=== PATIENT | male | born 1975 | race African-American/Black ===

== ENCOUNTER 2020-02-04 08:03 | Emergency (ER) | payer OTHER, SELFPAY ==
--- NOTE | 2020-02-04 08:18 | ED.GENADULT ---
HPI - General Adult General Chief complaint: Allergic Reaction Stated complaint: Swollen lips Time Seen by Provider: 02/04/20 08:18 Source: patient and RN notes reviewed Mode of arrival: ambulatory Limitations: no limitations History of Present Illness HPI narrative: 44-year-old -[place] male presents with complaints of swelling to upper lip for the past 15 hours. Benadryl 50mg, last on 02/03/20 without relief. Upper lip swelling which has increased over the last 8 hours and since taking the Benadryl. Estelle says he was stung on the foot by a wasp on 02/03/20 and was moving trees 1 hour prior to swelling of upper lip. Denies new changes in personal hygiene products or laundry detergent. Currently taking scott inhibitor (Lisinopril) since the age of 35 for Hypertension. No known hereditary angioedema. Says this is his first time hearing of such. No new foods or medications. No other swelling, burning, bleeding, or drainage. Denies fever, chills, headaches, weakness, fatigue, myalgia, other facial swelling, throat swelling, or tongue swelling. Denies chest pain or dyspnea. Tolerating po intake well. The patient reports he have not been diagnosed with COVID-19. The patient reports he is not waiting for the results of a COVID-19 lab test. Estelle says he was tested 2 weeks ago with a NEGATIVE result. The patient reports he do not have fever, chills, weakness, or fatigue. The patient reports he do not have a new or worsening cough or shortness of breath. Denies chest pain. The patient reports he do not have any rhinorrhea, congestion, sore throat, nausea, vomiting, abdominal pain, and diarrhea. Denies recent traveling. Denies concerns for COVID-19 or exposures been home with limited outdoor exposure except for essential household needs, work, and return home. At this time, patient is not suspected of having COVID-19. Some parts of this dictation were generated by voice recognition software and may contain typographical and/or grammatical inaccuracies. Related Data Home Medications Medication Instructions Recorded Confirmed carvedilol 07/06/19 rosuvastatin mg 07/06/19 Allergies Allergy/AdvReac Type Severity Reaction Status Date / Time No Known Drug Allergies Allergy Unknown Unknown Verified 07/06/19 10:50 Review of Systems Review of Systems: Narrative: CONSTITUTIONAL: Denies fever, chills, sweats. EYES: Denies visual changes, redness, discharge. ENT: Denies rhinorrhea, congestion, sore throat, otalgia. Complains of swelling to the upper lip. CARDIOVASCULAR: Denies chest pain, palpitations, edema. RESPIRATORY: Denies dyspnea, wheezing, cough. GASTROINTESTINAL: Denies abdominal pain, nausea, vomiting, diarrhea. GENITOURINARY: Denies dysuria, hematuria, abnormal discharge. SKIN: Denies drainage. MUSCULOSKELETAL: Denies acute back pain, joint pain, or myalgia. NEUROLOGIC: Denies numbness or focal weakness. PSYCHIATRIC: Denies anxiety or depression. All systems reviewed & are unremarkable except as noted in HPI and below. [facility] Past Medical History Medical History Cardiomyopathy Heart attack History of angina HTN (hypertension) Hyperlipidemia IBS (irritable bowel syndrome) Sleep apnea Surgical History Surgical History H/O local excision of skin lesion History of back surgery History of cardiac catheterization Family History Family History (Updated 02/04/20 @ 08:35 by GUILHERME Zelaya) Father Heart disease Mother Alive and well Social History Social History Smoking status: Current every day smoker Tobacco type: cigars Alcohol intake: current Substance use: never Gender identity (if verbalized by the patient): Male Comments At time of signature, agree with nurse past medical, surgical, social, and family history. There
[2020-02-04 08:19] VITALS: BP 145/90; PULSE 76; RESP 18; TEMP 36.7; O2SAT 100
[2020-02-04] MEDS: diphenhydrAMINE HCL ELIXIR 12.5 MG/5 ML UDC 50 MG PO (08:37)
[2020-02-04] MEDS: FAMOTIDINE 20 MG TABLET PO (08:38)
== END 2020-02-04 09:03 | disposition home or self-care (01) ==
PROVIDERS: Emergency Provider Nurse Practitioner Family; PCP Internal Medicine
DX: T78.3XXA Angioneurotic edema, initial encounter (principal); I25.2 Old myocardial infarction; I10 Essential (primary) hypertension; F17.290 Nicotine dependence, other tobacco product, uncomplicated
CPT/HCPCS: 96372; 99213; A9270; G0463; J1100

== ENCOUNTER 2021-01-21 12:10 | Outpatient (CLI) | payer OTHER, SELFPAY ==
--- NOTE | 2021-01-21 | ECG_ITS ---
Measurements Intervals [place] Rate: 59 P: 68 ID: [id number] QRS: 14 QRSD: 122 T: -8 QT: 426 QTc: 425 Interpretive Statements SINUS BRADYCARDIA RSR' IN V1 OR V2, CONSIDER RIGHT VENTRICULAR HYPERTROPHY OR RIGHT VCD DELAYED PRECORDIAL R/S TRANSITION CONSDIER INFERIOR INFARCT, AGE INDETERMINATE ABNORMAL ECG Electronically Signed On 01-21-2021 12:25:35 CDT by Richi Ellis D.O.
== END 2021-01-21 12:11 | disposition home or self-care (01) ==
PROVIDERS: PCP Internal Medicine; Visit Provider Nurse Practitioner Adult Health
DX: K21.9 Gastro-esophageal reflux disease without esophagitis (principal); I10 Essential (primary) hypertension; R00.1 Bradycardia, unspecified; R94.31 Abnormal electrocardiogram [ECG] [EKG]
CPT/HCPCS: 93005

== ENCOUNTER 2022-01-26 18:55 | Emergency (ER) | payer OTHER, SELFPAY ==
[2022-01-26 19:04] VITALS: BP 169/108; PULSE 66; RESP 16; TEMP 36.8; O2SAT 99
[2022-01-26 19:09] VITALS: BP 169/108; PULSE 66; RESP 16; TEMP 36.8; O2SAT 99
--- NOTE | 2022-01-26 19:17 | ED.URI ---
HPI - URI/Sore Throat General Chief Complaint: Upper Respiratory Infection Stated Complaint: sob Time Seen by Provider: 01/26/22 19:07 Source: patient Mode of arrival: ambulatory Limitations: no limitations History of Present Illness HPI Narrative: Patient presents today complaining of headache, dry cough, wheezing with shortness of breath that started around 9:00 this morning. Denies fever, chest pain, or any additional symptoms. He has been taking Tylenol and TheraFlu with mild relief. He has been vaccinated against COVID-19. Smokes cigars. Related Data Home Medications Medication Instructions Recorded Confirmed carvedilol 25 mg tablet 25 mg PO DAILY 07/06/19 01/26/22 Allergies Allergy/AdvReac Type Severity Reaction Status Date / Time lisinopril AdvReac Swelling Verified 01/26/22 19:02 Review of Systems Review of Systems: CONSTITUTIONAL: Denies body aches, fever, chills, or sweats. EYES: Denies visual changes, redness, or discharge. ENT: Denies rhinorrhea, congestion, sore throat, or otalgia. CARDIOVASCULAR: Denies chest pain, palpitations, or edema. RESPIRATORY: + Cough, shortness of breath, wheezing GASTROINTESTINAL: Denies abdominal pain, nausea, vomiting, or diarrhea. GENITOURINARY: Denies dysuria or hematuria. SKIN: Denies rash, itching, or wounds. MUSCULOSKELETAL: Denies back pain, joint pain, or myalgia. NEUROLOGIC: Denies numbness, tingling, or weakness.+ Headache PSYCH: Denies depression or anxiety. [facility] Past Medical History Medical History Cardiomyopathy Heart attack History of angina HTN (hypertension) Hyperlipidemia IBS (irritable bowel syndrome) Sleep apnea Surgical History Surgical History H/O local excision of skin lesion History of back surgery History of cardiac catheterization Family History Family History Father Heart disease Mother Alive and well Social History Social History Smoking status: Current every day smoker Tobacco type: cigars Alcohol intake: current Alcohol use details: Occasional Substance use: never Gender identity (if verbalized by the patient): Male Comments At time of signature, I have reviewed and agree with nursing past medical, surgical, social and family history unless otherwise noted. Please see nursing chart for further information. There is no relevant family history pertinent to the presenting complaint Exam Narrative: GENERAL: Well-appearing, well-nourished, and in no acute distress. HEAD: Normocephalic, atraumatic. EYES: EOMI. No redness or drainage. Conjunctivae normal. ENT: Mucous membranes pink and moist. Nares clear. No rhinorrhea. TMs normal bilaterally. Throat normal. Uvula midline. NECK: Normal AROM. Supple. No lymphadenopathy. CHEST: No respiratory distress. Clear to auscultation with decreased aeration. Tight cough with deep breaths. Able to speak in complete sentences throughout exam without difficulty. HEART: Regular rate and rhythm. No murmur appreciated. Normal peripheral pulses. EXTREMITIES: Normal range of motion. No edema. SKIN: Warm, dry, no rash. Capillary refill normal. Normal skin turgor. NEURO: No focal deficits. Alert and oriented x3. Gait steady. PSYCH: Normal affect. No signs of depression or anxiety. Course Course Emergency Course: 1944- Increased aeration after Duoneb. Patient states he is able to take a deeper breath. Breath sounds clear. He declines rx for cough medicine. Level of Care: Express Care Visit Vital Signs Vital signs: Vital Signs Temperature 98.3 F 01/26/22 19:04 Pulse Rate 66 01/26/22 19:04 Respiratory Rate 16 01/26/22 19:04 Blood Pressure 169/108 H 01/26/22 19:04 Pulse Oximetry 99 01/26/22 19:04 Oxygen Deliver
[2022-01-26 19:20] VITALS: BP 146/88
[2022-01-26] MEDS: ALBUTEROL SULFATE NEB 2.5 MG/3 ML INH INHALATION (19:23)
[2022-01-26] MEDS: IPRATROPIUM BR 0.02% INH SOLN 0.5 MG/2.5 ML VIAL INHALATION (19:23)
== END 2022-01-26 19:55 | disposition home or self-care (01) ==
PROVIDERS: Emergency Provider Nurse Practitioner
DX: J40 Bronchitis, not specified as acute or chronic (principal); F17.290 Nicotine dependence, other tobacco product, uncomplicated; I42.9 Cardiomyopathy, unspecified; I25.2 Old myocardial infarction; I20.9 Angina pectoris, unspecified; I10 Essential (primary) hypertension; E78.5 Hyperlipidemia, unspecified; G47.30 Sleep apnea, unspecified
CPT/HCPCS: 94640; 99213; G0463

== ENCOUNTER 2022-01-30 10:23 | Outpatient (CLI) | payer OTHER, SELFPAY ==
--- NOTE | ~2022-01-30 | XR_ITS ---
XR chest 2V DATE: 01/30/2022 10:49 INDICATION: Wheezing, shortness of breath TECHNIQUE: PA and lateral views COMPARISON: 07/06/2019 PA and lateral chest FINDINGS: Mild cardiomegaly. No hilar or mediastinal enlargement. No pulmonary infiltrate or consolid ation, pleural effusion or pulmonary vascular congestion or pneumothorax is detected. Degenerative spurring of the thoracic spine. IMPRESSION: Mild cardiomegaly Reviewed, dictated and finalized at location B. IMPRESSION: Mild cardiomegaly
== END 2022-01-30 10:24 | disposition home or self-care (01) ==
PROVIDERS: Visit Provider Nurse Practitioner Adult Health
DX: R06.2 Wheezing (principal); I51.7 Cardiomegaly
CPT/HCPCS: 71046

== ENCOUNTER 2022-03-24 23:21 | Inpatient (IN) | payer OTHER, SELFPAY ==
--- NOTE | ~2022-03-24 | CT_ITS ---
EXAMINATION: CTA chest DATE: 03/25/2022 11:51 CDT INDICATION: Chest and back pain TECHNIQUE: Computed tomographic angiography (CTA) of the chest was performed with 100 mL Omnipaque-35 0 intravenous contrast. The dose-length product was 1147.79 mGy-cm. Maximum intensity projection 3D-r econstructions of the aorta and other arteries were constructed by the technologist on a separate wor kstation. Automated exposure control and iterative reconstruction technique were employed. COMPARISON: Chest x-ray dated 01/30/2022. FINDINGS: Cardiomegaly. No significant pleural or pericardial effusion. There are changes of gastric bypass surgery. The aorta is within normal limits without evidence for aneurysm or dissection. The ce liac axis, SMA and renal arteries are widely patent. There is gynecomastia. No thoracic lymphadenopat hy. Study not optimized for evaluation of pulmonary embolism. No focal airspace consolidation. No pne umothorax. No endobronchial lesions. There is mild thoracic spondylosis. IMPRESSION: 1. No acute cardiopulmonary disease. No evidence for aortic aneurysm or dissection. Reviewed, dictated and finalized at location A. IMPRESSION: 1. No acute cardiopulmonary disease. No evidence for aortic aneurysm or dissect ion.
--- NOTE | 2022-03-24 23:16 | ADMGEN ---
This patient, Estelle Salazar, was admitted to IMU Room 209-01 at 2310. Patient/family oriented to hospital policies and general routines including ID bracelet, bed and alarms, visiting hours, pain management, procedures, bathroom and other care routines, personal items, smoking policy, room service/diet, and visiting hours. Information on how to activate the Rapid Response Team has been discussed. Patient/Family are encouraged to report perceived risks to care and to ask questions if they do not understand what they are told or what they should do.
[2022-03-24 23:19] VITALS: BMI 34.4
[2022-03-24 23:28] VITALS: BP 170/107; PULSE 71; RESP 18; TEMP 36.3; O2SAT 100
[2022-03-24 23:29] VITALS: BMI 34.2
[2022-03-25] VITALS (17 sets, daily range): BP systolic 104–177; BP diastolic 56–118; PULSE 53–88; RESP 16–18; TEMP 36.1–36.4; O2SAT 98–100
[2022-03-25] MEDS: ACETAMINOPHEN 325 MG TABLET 650 MG PO ×3 (02:34→14:54)
[2022-03-25 05:06] LABS: Hematocrit 39.9 % (42.0-52.0); Hemoglobin 13.7 g/dL (14.0-18.0); Mean Corpuscular HGB Conc 34.3 g/dl (32-36); Mean Corpuscular Hemoglobin 27.3 pg (26-34); Mean Corpuscular Volume 79.5 fl (80-100); Mean Platelet Volume 11.4 fl (7.4-10.4); Platelet Count Result 278 k/mm3 (150-375); Red Blood Count 5.02 M/mm3 (4.6-6.20); Red Cell Distribution Width 13.7 % (11.5-14.5); White Blood Count 6.7 K/mm3 (4.5-10.0)
[2022-03-25 05:31] LABS: Alanine Aminotransferase 30 U/L (6-50); Albumin Level 3.5 g/dL (3.5-5.1); Alkaline Phosphatase 81 U/L (38-126); Anion Gap 8 mmol/L (8-16); Aspartate Amino Transferase 47 U/L (17-59); Bilirubin,Total 0.6 mg/dL (0.2-1.3); Blood Urea Nitrogen 12 mg/dL (9-20); Calcium 8.3 mg/dL (8.4-10.2); Carbon Dioxide 27 mmol/L (22-30); Chloride 105 mmol/L (98-107); Cholesterol 158 mg/dL (0-200); Estimated CRCL calculation 143 ml/min; Estimated Glomerular Filt Rate > 60; Glucose 95 mg/dL (65-110); HDL Direct 46 mg/dL; Magnesium 1.8 mg/dL (1.6-2.3); Potassium 3.6 mmol/L (3.4-5.0); Sodium 140 mmol/L (137-145); Triglycerides 130 mg/dL (<150)
[2022-03-25 05:41] LABS: LDL Cholesterol Direct 88 mg/dL
--- NOTE | 2022-03-25 08:00 | ECG_ITS ---
Measurements Intervals [place] Rate: 57 P: 56 NC: 165 QRS: -17 QRSD: 150 T: 0 QT: 485 QTc: 472 Interpretive Statements SINUS BRADYCARDIA RIGHT BUNDLE BRANCH BLOCK CONSIDER INFERIOR INFARCT, AGE INDETERMINATE BORDERLINE T WAVE ABNORMALITY- LATERAL LEADS ABNORMAL ECG COMPARED TO ECG 03/25/2022 00:03:39 HEART RATE HAS DECREASED Electronically Signed On 03-25-2022 8:56:30 CDT by Richi Ellis D.O.
--- NOTE | 2022-03-25 08:00 | ECG_ITS ---
Measurements Intervals [place] Rate: 66 P: 57 WV: 160 QRS: -16 QRSD: 157 T: 12 QT: 474 QTc: 498 Interpretive Statements SINUS RHYTHM RIGHT BUNDLE BRANCH BLOCK CONSIDER INFERIOR INFARCT, AGE INDETERMINATE BASELINE ARTIFACT- I, III ABNORMAL ECG COMPARED TO ECG 01/21/2021 12:24:11 HEART RATE HAS INCREASED RIGHT BUNDLE-BRANCH BLOCK NOW PRESENT Electronically Signed On 03-25-2022 8:49:08 CDT by Richi Ellis D.O.
[2022-03-25] MEDS: LOSARTAN POTASSIUM 100 MG TABLET PO (08:30)
[2022-03-25] MEDS: ASPIRIN 81 MG ENTERIC TABLET PO (08:30)
[2022-03-25] MEDS: carvediloL 25 MG TABLET PO ×3 (08:31→21:16)
--- NOTE | 2022-03-25 09:03 | PM.IMHP ---
H&P: HPI History of Present Illness Date/Time: 03/25/22 09:03 Chief Complaint: Chest Pain, Elevated trop, NSTEMI Narrative: Estelle Salazar is a 46-year-old male followed by Dr. Montaño for a cardiomyopathy, thought to be hypertensive cardiomyopathy. His most recent echo in June 2021 showed an ejection fraction of 45-52%, moderate LV enlargement with mild global hypokinesis. He was seen by our nurse practitioner on 01/30/2022 complaining of wheezing and shortness of breath. A follow-up chest x-ray was unremarkable. He has been using the inhaler and PFTs are pending. The patient has been doing well with no further shortness of breath. However suddenly yesterday while at work, around 1:00 p.m., he developed an intense sharp continuous substernal tightness which radiated to both arms and also to his upper back. He had no nausea, vomiting, sweats or shortness of breath. EMS gave him some nitro and he was taken to [facility] in [facility]. There his ER EKG showed sinus rhythm rate 63, right bundle-branch block left anterior fascicular block and no ischemic changes although on my personal review I do see some slight early repolarization anterio- laterally. The chest discomfort had resolved at that point. After discussion with ER MD Dr. Munoz, I agreed to accept the patient and he was given a dose of full dose Lovenox. The patient reports he had some very minimal chest discomfort lasting 5-10 minutes around 1:00 a.m. this morning but he has been fine since then. The patient had a cardiac catheterization 2011 to evaluate his new cardiomyopathy which showed no coronary disease. He does not smoke. His father has had some type of clogged arteries. No drug use. No problems with MATHEW your other episodes of chest pain. Review of Systems Constitutional: Constitutional: Denies fever(s) Cardiovascular: Cardiovascular: Reports chest pain, Reports pedal edema (Infrequently), Denies lightheadedness and Denies dyspnea Respiratory: Respiratory: Denies chest congestion and Denies dyspnea Comments: Patient's wheezing and shortness of breath and [place] has resolved. No history of asthma but he was given inhaler which she uses infrequently. Gastrointestinal: Gastrointestinal: Denies abdominal pain, Denies hematochezia and Reports heartburn Musculoskeletal: Musculoskeletal: Reports no additional musculoskeletal complaints Integumentary/Breasts: Skin/Breast: Reports system reviewed and no additional complaints, except as docu Neurologic: Reports system reviewed and no additional complaints, except as documented, Denies behavioral changes and Denies confusion Psychiatric: Psychiatric: Denies behavioral changes and Denies confusion Hematologic/Lymphatic: Comments: Patient had a [id number]-rso-[id number] DVT 1 year ago treated with Eliquis, after his gastric bypass surgery. [facility] Past Medical History Medical History (Updated 03/25/22 @ 10:12 by Maegan Chaparro MD) Cardiomyopathy H/O deep venous thrombosis 2020? 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 H/O local excision of skin lesion History of back surgery History of cardiac catheterization Family History Family History (Updated 03/25/22 @ 10:08 by Maegan Chaparro MD) Father Heart disease Heart problems when in his 20's, clogged arteries in middle age, possible valve dz Hypertension Diabetes mellitus Mother Alive and well Other Blood clot in vein Social History Social History Smoking status: Former smoker Alcohol intake: current Drinks per week: 5 Alcohol use details: Occasional Substance use: never Gender identit
[2022-03-25] MEDS: PERFLUTREN LIPID MICROSPHERES 1.5 ML VIAL DILUTED TO 10 ML TOTAL VOLUME IV PUSH (09:55)
--- NOTE | 2022-03-25 09:56 | IVDEFINITY ---
Prior to administration of IV Definity the patient was educated on the risks and benefits of the imaging enhancing agent including potential adverse side effects. The patient verbalized understanding. Allergies were verified. No exclusion criteria were identified and at least one of the following inclusion criteria were met: 1) physician request, 2) patient technically difficult to image (per the [place] [employer]chocardi[employer] guidelines of two or more segments not discernable within the apical view), or 3) questionable left ventricular function. ?
[2022-03-25] MEDS: amLODIPine BESYLATE 5 MG TABLET PO (10:53)
[2022-03-25 14:02] LABS: Basophils Percent Auto 0.3 % (0.2-1.2); Eosinophils Absolute Auto 0.3 K/mm3 (0-0.3); Eosinophils Percent Auto 5.4 % (0-4.4); Hematocrit 41.2 % (42.0-52.0); Hemoglobin 14.1 g/dL (14.0-18.0); Immature Granulocyte Absolute 0.01 K/mm3 (0.00-0.031); Immature Granulocyte Percent A 0.2 % (0-0.5); Lymphocytes Absolute Auto 1.56 K/mm3 (0.9-3.2); Lymphocytes Percent Auto 26.5 % (18.3-44.2); Mean Corpuscular HGB Conc 34.2 g/dl (32-36); Mean Corpuscular Hemoglobin 27.2 pg (26-34); Mean Corpuscular Volume 79.4 fl (80-100); Monocytes Absolute Auto 0.5 K/mm3 (0.1-0.6); Neutrophils Absolute Auto 3.5 K/mm3 (1.3-6.7); Neutrophils Percent Auto 59.6 % (45.5-73.1); Platelet Count Result 291 k/mm3 (150-375); Red Blood Count 5.19 M/mm3 (4.6-6.20); White Blood Count 5.9 K/mm3 (4.5-10.0)
[2022-03-25 14:16] LABS: INR 1.1; Prothrombin Time 13.5 Seconds (11.1-14.7)
[2022-03-25] MEDS: HEPARIN SOD/D5W 100 UNITS/ML 25,000 UNITS/250 ML BAG 10 UNITS IV CONT (14:54)
[2022-03-25] MEDS: hydrALAZINE HCL 25 MG TABLET PO (14:57)
[2022-03-25 21:52] LABS: Partial Thromboplastin Time 31.3 SECONDS (22.3-36.8)
--- NOTE | 2022-03-25 23:30 | ECHO_ITS ---
Patient Info Name: Estelle Salazar Age: 46 years : 1975 Gender: Male Ht: 74 in Wt: 274 lbs BSA: 2.59 m2 HR: 58 bpm BP: 127 / 74 mmHg Heart Rhythm: Sinus Rhythm Exam Date: 03/25/2022 9:40 AM Exam Location: [facility] Patient Status: Inpatient Admit Date: 03/24/2022 Staff Ordering Physician: Maegan Chaparro MD Intake Coordinator: Karla Oropeza RDCS Attending Provider: Maegan Chaparro MD Referring Physician: Shankar AKERS; Exam Type: CA echo dop color flow w con Study Info Indications R07.9 - Chest pain, unspecified Complete two-dimensional, color flow and Doppler transthoracic echocardiogram is performed with contrast to opacify the left ventricle and to improve the deliniation of the left ventricle endocardial borders. Summary 1. Severe left ventricular enlargement with mild eccentric hypertrophy. Severe global hypokinesis, worse in the inferolateral segments. Ejection fraction is 25-30%. Grade 2 diastolic dysfunction is present. 2. Mild right ventricular enlargement with normal contractility. 3. Left atrial chamber dimension is moderately enlarged. 4. There is mild mitral valve regurgitation. 5. Unable to estimate the right ventricular systolic pressure on this study. 6. Normal sinus rhythm. Left Ventricle Left ventricular chamber dimension is normal. Left ventricular systolic function is normal, estimated at 25-30%. There is mildly increased left ventricular wall thickness. Left ventricular septal wall motion is normal. The left ventricular diastolic function is grade II diastolic dysfunction. Right Ventricle Right ventricular chamber dimension is mildly enlarged. Right ventricular systolic function is normal. Left Atria Left atrial chamber dimension is moderately enlarged. Right Atria Right atrial chamber dimension is normal. Aortic Valve The aortic valve is trileaflet. There is no aortic valve sclerosis. There is no aortic valve stenosis. There is trace aortic valve regurgitation. Pulmonic Valve The pulmonic valve is normal. There is no pulmonic valve stenosis. There is trace pulmonic regurgitation. Mitral Valve The mitral valve has normal leaflets. There is no mitral valve stenosis. There is mild mitral valve regurgitation. Tricuspid Valve The tricuspid valve leaflets are normal. There is no significant tricuspid valve stenosis. There is no tricuspid valve regurgitation. No pulmonary hypertension, estimated pulmonary arterial systolic pressure is Empty. Pericardium/Pleural The pericardium appears normal. There is no pericardial effusion. Inferior Vena Cava Normal inferior vena cava with >50% collapse upon inspiration consistent with Empty right atrial pressure, Empty. Aorta The aortic root size at the sinus of Valsalva is normal. The prox ascending aorta size is normal. Left Ventricular Outflow Tract Name Value Normal LVOT 2D LVOT Diameter 2.42 cm LVOT Doppler LVOT Peak Gradient 6 mmHg LVOT Mean Gradient 4 mmHg LVOT VTI 26.16 cm LVOT
[2022-03-26] VITALS (14 sets, daily range): BP systolic 104–151; BP diastolic 66–94; PULSE 53–89; RESP 14–20; TEMP 36.2–36.6; O2SAT 93–99
[2022-03-26] MEDS: HEPARIN SODIUM 5,000 UNITS/ML VIAL 4000 UNITS IV PUSH ×2 (04:28→11:54)
[2022-03-26] MEDS: ATORVASTATIN 40 MG TABLET PO (08:25)
[2022-03-26] MEDS: ASPIRIN 81 MG ENTERIC TABLET PO (08:26)
[2022-03-26] MEDS: carvediloL 25 MG TABLET PO ×2 (08:26→20:58)
[2022-03-26] MEDS: LOSARTAN POTASSIUM 100 MG TABLET PO (08:26)
[2022-03-26] MEDS: SPIRONOLACTONE 25 MG TABLET PO (08:26)
[2022-03-26] MEDS: amLODIPine BESYLATE 5 MG TABLET PO (08:27)
[2022-03-26] MEDS: HEPARIN SOD/D5W 100 UNITS/ML 25,000 UNITS/250 ML BAG 14 UNITS IV CONT (10:31)
[2022-03-26 11:09] LABS: Basophils Percent Auto 0.3 % (0.2-1.2); Eosinophils Absolute Auto 0.4 K/mm3 (0-0.3); Eosinophils Percent Auto 5.5 % (0-4.4); Hematocrit 41.5 % (42.0-52.0); Hemoglobin 14.1 g/dL (14.0-18.0); Immature Granulocyte Absolute 0.03 K/mm3 (0.00-0.031); Immature Granulocyte Percent A 0.4 % (0-0.5); Lymphocytes Absolute Auto 1.99 K/mm3 (0.9-3.2); Lymphocytes Percent Auto 29.7 % (18.3-44.2); Mean Corpuscular Hemoglobin 27.2 pg (26-34); Mean Platelet Volume 10.8 fl (7.4-10.4); Monocytes Absolute Auto 0.6 K/mm3 (0.1-0.6); Monocytes Percent Auto 8.3 % (2.6-8.5); Neutrophils Absolute Auto 3.7 K/mm3 (1.3-6.7); Neutrophils Percent Auto 55.8 % (45.5-73.1); Platelet Count Result 267 k/mm3 (150-375); Red Blood Count 5.19 M/mm3 (4.6-6.20); Red Cell Distribution Width 14.1 % (11.5-14.5); White Blood Count 6.7 K/mm3 (4.5-10.0)
[2022-03-26 11:20] LABS: Partial Thromboplastin Time 42.6 SECONDS (22.3-36.8)
--- NOTE | 2022-03-26 12:25 | PM.PNCARD ---
Progress Note: A&P Assessment and Plan (1) NSTEMI (non-ST elevated myocardial infarction): Code(s): I21.4 - Non-ST elevation (NSTEMI) myocardial infarction Status: Acute Assessment and Plan: Patient prevents with history highly consistent with a non-STEMI. EKG shows some lateral changes. Troponin rise and fall consistent with a non-STEMI. Has been pain-free for greater than 24 hours Continue aspirin, heparin, atorvastatin, carvedilol, losartan p.r.n. nitroglycerin Control blood pressure Cardiac catheterization on Sunday. Reviewed the procedure with the patient and possible need for intervention or surgery If patient has prolonged chest discomfort not relieved with nitroglycerin we can do an emergency cardiac catheterization over the weekend (2) Cardiomyopathy: Code(s): I42.9 - Cardiomyopathy, unspecified Status: Acute Assessment and Plan: History of cardiomyopathy, EF 45-52% in June 2021, thought to be hypertensive. EF has declined, now 25-30%, worse infero- laterally. At risk for sudden cardiac , discussed possible Life Vest placement Further discussion tomorrow after cardiac catheterization. It is true that the patient's cardiomyopathy may be undesirable to his employer; further discussion at a later date. (3) HTN (hypertension): Code(s): I10 - Essential (primary) hypertension Status: Acute Assessment and Plan: Apparently reasonably well controlled most the time, running very high this admission. Improved after adding amlodipine P.r.n. hydralazine (4) Hyperlipidemia: Code(s): E78.5 - Hyperlipidemia, unspecified Status: Acute Assessment and Plan: LDL 88 Started atorvastatin (5) H/O deep venous thrombosis: Code(s): Z86.718 - Personal history of other venous thrombosis and embolism Status: Acute Assessment and Plan: History of cbmeg-ahy-[id number] DVT about a year ago, previously treated with Eliquis, resolved. History does not sound very suggestive of another DVT or PE. Subjective Date/time seen: Patient admitted with acute chest pain found to have a non-STEMI. Started on heparin drip. History of hypertension and cardiomyopathy, followed by Dr. Montaño. Echo this admission shows worsening LV function, EF 25-30%, severe global hypokinesis worse in inferolateral leads. 03/25/2022: CT of the chest showed no aortic dissection so patient was started on heparin. 03/26/22 12:25: Up in about a and his room, headache finally gone. No further chest discomfort, no breathing problems. Blood pressure is still high but improved. Concerned that his heart condition will prevent him from working. Tele: NSR, occasional PVCs Review of Systems Review of Systems: No chest pain, dizziness, shortness of breath, edema, palpitations. Exam Narrative: Up and about in his room in no distress Const: General: cooperative, healthy appearing and comfortable; No confusion Orientation/consciousness: oriented to person, patient oriented x3 and No confusion Resp: Effort & Inspection: normal respiratory effort Auscultation: clear to auscultation bilaterally Cardio: Rate: regular rate Rhythm: regular rhythm GI: Inspection: normal to inspection Other: No distension Skin: General skin exam: normal color and no rashes or lesions noted Neuro: General: oriented to person, patient oriented x3 and No confusion Extrem: Right lower extremity: no edema Left lower extremity: no edema Psych: Appearance: grossly normal Mental Status: mental status grossly normal Objective Data Vital Signs Vital Signs: Vital Signs - 24 hr 03/25/22 14:00 03/25/22 14:39 03/25/22 16:00 Temperature 97.5 F L Pulse Rate 69 77 Respiratory Rate 18 Blood Pressure 154/107 H 149/90 H Pulse Oximetry 98 Oxygen Delivery 03/25/22 16:00 03/25/22 18:00 03/25/22 20:00 Temperature 97.4 F L Pulse Rate 64 88 61 Respiratory Rate
[2022-03-26 17:40] LABS: Partial Thromboplastin Time 84.5 SECONDS (22.3-36.8)
[2022-03-27] VITALS (28 sets, daily range): BP systolic 108–176; BP diastolic 52–110; PULSE 52–74; RESP 14–20; TEMP 36.4–36.9; O2SAT 95–100
[2022-03-27] MEDS: HEPARIN SOD/D5W 100 UNITS/ML 25,000 UNITS/250 ML BAG 18 UNITS IV CONT (00:05)
[2022-03-27 01:48] LABS: Partial Thromboplastin Time 79.2 SECONDS (22.3-36.8)
[2022-03-27 09:54] LABS: Basophils Percent Auto 0.4 % (0.2-1.2); Eosinophils Absolute Auto 0.4 K/mm3 (0-0.3); Eosinophils Percent Auto 5.5 % (0-4.4); Hematocrit 40.6 % (42.0-52.0); Hemoglobin 13.7 g/dL (14.0-18.0); Immature Granulocyte Absolute 0.03 K/mm3 (0.00-0.031); Immature Granulocyte Percent A 0.4 % (0-0.5); Lymphocytes Absolute Auto 2.67 K/mm3 (0.9-3.2); Lymphocytes Percent Auto 39.5 % (18.3-44.2); Mean Corpuscular HGB Conc 33.7 g/dl (32-36); Mean Corpuscular Hemoglobin 27.5 pg (26-34); Mean Corpuscular Volume 81.4 fl (80-100); Mean Platelet Volume 11.8 fl (7.4-10.4); Monocytes Absolute Auto 0.6 K/mm3 (0.1-0.6); Monocytes Percent Auto 8.7 % (2.6-8.5); Neutrophils Absolute Auto 3.1 K/mm3 (1.3-6.7); Neutrophils Percent Auto 45.5 % (45.5-73.1); Platelet Count Result 277 k/mm3 (150-375); Red Blood Count 4.99 M/mm3 (4.6-6.20); Red Cell Distribution Width 14.3 % (11.5-14.5); White Blood Count 6.8 K/mm3 (4.5-10.0)
[2022-03-27 10:07] LABS: Alanine Aminotransferase 26 U/L (6-50); Albumin Level 3.4 g/dL (3.5-5.1); Alkaline Phosphatase 90 U/L (38-126); Anion Gap 7 mmol/L (8-16); Aspartate Amino Transferase 24 U/L (17-59); Bilirubin,Total 0.7 mg/dL (0.2-1.3); Blood Urea Nitrogen 12 mg/dL (9-20); Calcium 8.6 mg/dL (8.4-10.2); Carbon Dioxide 29 mmol/L (22-30); Chloride 102 mmol/L (98-107); Estimated CRCL calculation 127 ml/min; Estimated Glomerular Filt Rate > 60; Glucose 87 mg/dL (65-110); Potassium 4.2 mmol/L (3.4-5.0); Sodium 138 mmol/L (137-145)
--- NOTE | 2022-03-27 10:19 | WPDMODSED ---
Moderate Sedation Note-Pt Data Patient Data Diagnosis: Acute coronary syndrome Left ventricular systolic dysfunction Present Complaint: No complaints this morning Procedure to be performed/Plan: Left heart catheterization Allergies Allergy/AdvReac Type Severity Reaction Status Date / Time lisinopril AdvReac Swelling Verified 01/26/22 19:02 Home Medications Medication Instructions Recorded Confirmed Type carvedilol 25 mg tablet 25 mg PO BID 07/06/19 03/24/22 History losartan 100 mg tablet 100 mg PO DAILY #30 tabs 02/04/20 03/24/22 Rx albuterol sulfate 90 mcg/actuation 2 puff inhalation Q4-6H PRN 01/26/22 03/24/22 Rx aerosol inhaler (ProAir HFA) shortness of breath or wheezing #18 grams Current Medications: Active Medications Acetaminophen (Acetaminophen 325 Mg Tablet) 650 mg PO Q6H PRN PRN Reason: Mild Pain (1-3) or Fever Last Admin: 03/25/22 14:54 Dose: 650 mg Amlodipine Besylate (Amlodipine Besylate 5 Mg Tablet) [facility] [place] Last Admin: 03/26/22 08:27 Dose: 5 mg Aspirin (Aspirin 81 Mg Enteric Tablet) 81 mg PO QAM [facility] Last Admin: 03/26/22 08:26 Dose: 81 mg Atorvastatin Calcium (Atorvastatin 40 Mg Tablet) 40 mg PO DAILY [facility] Last Admin: 03/26/22 08:25 Dose: 40 mg Carvedilol (Carvedilol 25 Mg Tablet) 25 mg PO Q12HR [facility] Last Admin: 03/26/22 20:58 Dose: 25 mg Heparin Sodium (Porcine) (Heparin Sodium 5,000 Units/Ml Vial) 4,000 units IV PUSH PRN PRN PRN Reason: aPTT less than 55 seconds Last Admin: 03/26/22 11:54 Dose: 4,000 units Heparin Sodium (Porcine) (Heparin Sodium 5,000 Units/Ml Vial) 4,000 units IV PUSH PRN PRN PRN Reason: aPTT 55 - 70 seconds Hydralazine HCl (Hydralazine Hcl 25 Mg Tablet) 25 mg PO Q6H PRN PRN Reason: SBP>160 OR DBP>100 Heparin Sodium/Dextrose (Heparin Sodium/D5w 100 Units/Ml) 25,000 units in 250 mls @ 18 mls/hr IV CONT .[id number] [facility]; Protocol Last Titration: 03/27/22 04:51 Dose: 1,800 units/hr, 18 mls/hr Sodium Chloride (Normal Saline Iv) 500 mls @ 100 mls/hr IV CONT .Q5H STEPHANIE Losartan Potassium (Losartan Potassium 100 Mg Tablet) 100 mg PO DAILY [facility] Last Admin: 03/26/22 08:26 Dose: 100 mg Nitroglycerin (Nitroglycerin Sl 0.4 Mg Tablet) 0.4 mg SUBLINGUAL Q5MIN PRN PRN Reason: Chest Pain Oxycodone/Acetaminophen (Oxycodone/Acetaminophen (*Crx) 5-325 Mg Tablet) 1 tablet PO Q4H PRN PRN Reason: Pain Rated 4-6 Spironolactone (Spironolactone 25 Mg Tablet) 25 mg PO QAM [facility] Last Admin: 03/26/22 08:26 Dose: 25 mg Temazepam (Temazepam (*Crx) 15 Mg Capsule) 15 mg PO HS PRN PRN Reason: Insomnia Sedation/Anesthesia: No previous sedation/anesthesia problems (including family history). [facility] Past Medical History Medical History (Updated 03/25/22 @ 10:12 by Maegan Chaparro MD) Cardiomyopathy H/O deep venous thrombosis 2020? 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 H/O local excision of skin lesion History of back surgery History of cardiac catheterization Family History Family History (Updated 03/25/22 @ 10:09 by Maegan Chaparro MD) Father Heart disease Heart problems when in his 20's, clogged arteries in middle age, possible valve dz Hypertension Diabetes mellitus Mother Alive and well Other Blood clot in vein Social History Social History Smoking status: Former smoker Alcohol intake: current Drinks per week: 5 Alcohol use details: Occasional Substance use: never Gender identity (if verbalized by the patient): Male Spiritual care concerns: Yes Mod Sed Physical Exam Physical Exam Pre Procedural Exam: Normal: Appearance, Nose, Neck, Throat, Airway, Lungs, Heart Si
--- NOTE | 2022-03-27 10:56 | P.PCNCC_ITS ---
Cardiac Cath Procedure Note Date of procedure:: 03/27/22 Performing physician:: Harman Montaño MD Indication:: concern regarding acute coronary syndrome Brief clinical history:: this is a 46-year-old man with a history of hypertension and hypertensive cardiomyopathy who has been doing well with standard medical therapy. He presented to referring hospital's emergency room over the weekend with some ches t pain there has been a modest troponin rise. In this setting catheterization has been recommended. When his initial diagnosis was made approximately 10 years ago he did not have any coronary artery disease Procedure Procedure performed:: left ventriculogram coronary angiogram Angio-Seal to right femoral artery Sedation/Medication given:: fentanyl 50 mg Versed 2 mg case start time 10:34 a.m. case end time 10:52 a.m. sedation provided by Yen Rodriguez RN, trained observer Access site:: right femoral artery Estimated blood loss:: 20 cc Procedure note:: patient was brought to the cardiac catheterization lab postabsorptive state right femoral triangle was prepared and draped in the normal fashion. Anesthes ia was provided with 1% lidocaine infiltrated locally. Using the modified Seldinger technique femoral artery was punctured and a 5 [place] vascular sheath was placed. I then performed left heart catheterization 5 [place] angled pigtail catheter was used to measure left-sided hemodynamics and to inject LV g in the BARRY projection. Following this a standard 5 [place] JR4 catheter was used to engage and inject the right coronary artery then a 5 [place] FL4 catheter was used to engage inject the left coronary artery. The cineangiograms were then reviewed and the case was terminated. An angiogram was done of the femoral artery through the sheath after which a 6 [place] Angio-Seal device was deployed with a good hemostatic result. Patient tolerated the procedure well there were no apparent complications. 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 Findings:: Hemodynamics: Central aortic pressure is 146 over 95 left ventricle 144 over 12 end-diastolic pressure 36. No gradient was seen on pullback across the aortic valve. Left ventriculogram: The left ventricle is dilated. There is profound global systolic hypocontractility in all segments. The ejection fraction is visually estimated to be at 15%. The left main coronary artery is nicely patent the left anterior descending is a large caliber artery extending down to around the apex providing a significant amount of inferior wall as well. The LAD is smooth and angiographically normal in appearance the circumflex is a large caliber vessel giving rise to the marginal branches. The circumflex is smooth and free of disease. Right coronary artery is large in caliber and dominant posterior circulation. The RPDA is relatively small as the LAD extends around to the inferior wall as described above. Other than this the right coronary artery is smooth and angiographically normal. Conclusion:: 1. Right coronary dominant circulation with no evidence of coronary artery disease. 2. Left ventricular dilation with profound global systolic hypocontractility as described above elevated LVEDP Har[facility] Mont[facility]ño MD [facility]
--- NOTE | 2022-03-27 11:02 | PM.PNCARD ---
Progress Note: A&P Assessment and Plan (1) Cardiomyopathy: Code(s): I42.9 - Cardiomyopathy, unspecified Status: Acute Plan 46-year-old man with: Severe nonischemic cardiomyopathy. Will transition him at this time from losartan to Entresto. He is already on full dose carvedilol. Spironolactone was added over the weekend by my partner. He will remain in the hospital least until tomorrow because of today's angiogram. Will ensure that he tolerates Entresto without any hemodynamic problems. I will start with 49/50 mg since he is already on 100 mg of losartan. We will arrange for a life vest device prior to discharge. Harman Montaño MD [facility] Subjective Date/time seen: date of service:03/27/22 11:02 Interval history: Follow-up visit in this 46-year-old man with: Severe dilated nonischemic cardiomyopathy. Patient has history of cardiomyopathy which is been doing well with medical therapy for approximately a decade. He presented with chest pain on Sunday raising concern regarding coronary disease. Angiography today again demonstrates this gentleman does not have any coronary disease. Unfortunately he has markedly worsening cardiomyopathy with LV dilation severe global systolic dysfunction. LVEDP is elevated as well Exam Narrative: Up and about in his room in no distress Const: General: cooperative, healthy appearing, comfortable, well developed and alert; No acute distress or confusion Nutritional Appearance: well nourished Orientation/consciousness: oriented to person, patient oriented x3 and No confusion Other: Obese, pleasant and NAD HENMT: Head: normocephalic and atraumatic Ears: external ears normal General nose exam: Normal external nose present Mouth: Yes Normal oral and palatal mucosa present Eyes: General: appearance normal, both eyes and all related structures EOM: EOMs intact bilaterally Neck: Neck: no lymphadenopathy and No JVD Thyroid: thyroid normal Carotids: no bruits Chest: Chest palpation & inspection: no tenderness Resp: Effort & Inspection: normal respiratory effort and able to speak in complete sentences Auscultation: clear to auscultation bilaterally Cardio: Jugular venous distension: no JVD Rate: regular rate Rhythm: regular rhythm Bruits: no carotid bruits Peripheral pulses: Peripheral pulses 2+ throughout, posterior tibial pulses present and dorsalis pedis present Other: FEmoral pulses w/o bruits GI: Inspection: normal to inspection and non-distended Other: No distension Skin: General skin exam: normal color and no rashes or lesions noted Rashes: rash noted Wounds: wound noted Neuro: General: oriented to person, patient oriented x3 and No confusion Speech: normal speech Extrem: General: no pedal edema Right lower extremity: no edema Left lower extremity: no edema Psych: Appearance: grossly normal Mental Status: mental status grossly normal Speech and movement: Normal speech and movement present Objective Data Vital Signs Vital Signs: Vital Signs - 24 hr 03/26/22 12:00 03/26/22 12:00 03/26/22 15:59 Temperature 36.5 C 36.5 C Pulse Rate 66 61 68 Respiratory Rate 20 14 Blood Pressure 130/70 125/70 Pulse Oximetry 93 99 Oxygen Delivery 03/26/22 14:00 03/26/22 16:00 03/26/22 18:00 Temperature Pulse Rate 78 77 79 Respiratory Rate Blood Pressure Pulse Oximetry Oxygen Delivery 03/26/22 20:00 03/26/22 20:58 03/26/22 20:00 Temperature 36.4 C Pulse Rate 65 67 Respiratory Rate 18 Blood Pressure 141/80 H Pulse Oximetry 99 Oxygen Delivery Room Air 03/26/22 20:00 03/26/22 22:00 03/27/22 00:00 Temperature 36.8 C Pulse Rate 67 80 73 Respiratory Rate 18 Blood Pressure 114/58 L Pulse Oximetry 98 Oxygen Delivery 03/27/22 00:00 03/27/22 00:00 03/27/22 02:00 Temperature Pulse Rate 57 L 53 L Respiratory Rate Blood Pressure Pulse Oximetry Oxygen Delivery Room Air
--- NOTE | 2022-03-27 12:48 | PC.NURSE ---
[facility] flyer was given to patient in admission folder.
[2022-03-27] MEDS: SPIRONOLACTONE 25 MG TABLET PO (13:02)
[2022-03-27] MEDS: amLODIPine BESYLATE 5 MG TABLET PO (13:02)
[2022-03-27] MEDS: ASPIRIN 81 MG ENTERIC TABLET PO (13:02)
[2022-03-27] MEDS: carvediloL 25 MG TABLET PO ×2 (13:02→20:48)
[2022-03-27] MEDS: ATORVASTATIN 40 MG TABLET PO (13:02)
[2022-03-27] MEDS: SACUBITRIL/VALSARTAN 49-51 MG TABLET 1 TABLET PO (20:48)
[2022-03-27] MEDS: ACETAMINOPHEN 325 MG TABLET 650 MG PO (20:53)
[2022-03-28] VITALS (8 sets, daily range): BP systolic 135–148; BP diastolic 89–102; PULSE 53–78; RESP 16–20; TEMP 36.1–36.5; O2SAT 99–100
[2022-03-28] MEDS: SPIRONOLACTONE 25 MG TABLET PO (10:00)
[2022-03-28] MEDS: SACUBITRIL/VALSARTAN 49-51 MG TABLET 1 TABLET PO (10:00)
[2022-03-28] MEDS: ASPIRIN 81 MG ENTERIC TABLET PO (10:00)
[2022-03-28] MEDS: carvediloL 25 MG TABLET PO (10:00)
[2022-03-28] MEDS: ATORVASTATIN 40 MG TABLET PO (10:00)
[2022-03-28] MEDS: amLODIPine BESYLATE 5 MG TABLET PO (10:01)
--- NOTE | 2022-03-28 10:49 | PM.PNCARD ---
Progress Note: A&P Assessment and Plan (1) Cardiomyopathy: Code(s): I42.9 - Cardiomyopathy, unspecified Status: Acute Plan 46-year-old man with: Severe nonischemic cardiomyopathy. Will transition him at this time from losartan to Entresto. He is already on full dose carvedilol. Spironolactone was added over the weekend by my partner. He will remain in the hospital least until tomorrow because of today's angiogram. Will ensure that he tolerates Entresto without any hemodynamic problems. I will start with 49/50 mg since he is already on 100 mg of losartan. We will arrange for a life vest device prior to discharge. Harman Montaño MD [facility] Subjective Date/time seen: 03/28/22 10:49 Review of Systems Constitutional: Constitutional: Denies fever(s) Cardiovascular: Cardiovascular: Reports chest pain, Reports pedal edema (Infrequently), Denies lightheadedness and Denies dyspnea Respiratory: Respiratory: Denies chest congestion and Denies dyspnea Gastrointestinal: Gastrointestinal: Denies abdominal pain, Denies hematochezia and Reports heartburn Musculoskeletal: Musculoskeletal: Reports no additional musculoskeletal complaints Integumentary/Breasts: Skin/Breast: Reports system reviewed and no additional complaints, except as docu Neurologic: Reports system reviewed and no additional complaints, except as documented, Denies behavioral changes and Denies confusion Psychiatric: Psychiatric: Denies behavioral changes and Denies confusion Exam Narrative: Up and about in his room in no distress Const: General: cooperative, healthy appearing, comfortable, well developed and alert; No acute distress or confusion Nutritional Appearance: well nourished Orientation/consciousness: oriented to person, patient oriented x3 and No confusion Other: Obese, pleasant and NAD HENMT: Head: normocephalic and atraumatic Ears: external ears normal General nose exam: Normal external nose present Mouth: Yes Normal oral and palatal mucosa present Eyes: General: appearance normal, both eyes and all related structures EOM: EOMs intact bilaterally Neck: Neck: no lymphadenopathy and No JVD Thyroid: thyroid normal Carotids: no bruits Chest: Chest palpation & inspection: no tenderness Resp: Effort & Inspection: normal respiratory effort and able to speak in complete sentences Auscultation: clear to auscultation bilaterally Cardio: Jugular venous distension: no JVD Rate: regular rate Rhythm: regular rhythm Bruits: no carotid bruits Peripheral pulses: Peripheral pulses 2+ throughout, posterior tibial pulses present and dorsalis pedis present Other: FEmoral pulses w/o bruits GI: Inspection: normal to inspection and non-distended Other: No distension Skin: General skin exam: normal color and no rashes or lesions noted Rashes: rash noted Wounds: wound noted Neuro: General: oriented to person, patient oriented x3 and No confusion Speech: normal speech Extrem: General: no pedal edema Right lower extremity: no edema Left lower extremity: no edema Psych: Appearance: grossly normal Mental Status: mental status grossly normal Speech and movement: Normal speech and movement present Objective Data Vital Signs Vital Signs: Vital Signs - 24 hr 03/27/22 11:13 03/27/22 12:24 03/27/22 11:54 Temperature 36.4 C Pulse Rate 60 62 57 L Respiratory Rate 16 14 14 Blood Pressure 140/97 H 149/102 H 148/94 H Pulse Oximetry 100 99 95 Oxygen Delivery Room Air 03/27/22 11:39 03/27/22 11:24 03/27/22 12:54 Temperature 36.6 C Pulse Rate 58 L 59 L 59 L Respiratory Rate 14 14 18 Blood Pressure 150/97 H 141/96 H 139/91 H Pulse Oximetry 98 100 99 Oxygen Delivery 03/27/22 11:45 03/27/22 11:30 03/27/22 11:15 Temperature Pulse Rate 58 L 59 L 59 L Respiratory Rate 14 14 14 Blood Pressure 150/97 H 141/96 H 149/106 H Pulse Oximetry 98 100 100 Oxygen Delivery Room Air Room Air Room Air 03/27/22 12
--- NOTE | 2022-03-28 12:51 | PM.DS ---
DS: Admitting Diagnosis Discharge Date 03/28/2022 Admitting Diagnosis Chest pain DS: Discharge Diagnosis Discharge Diagnosis (1) Cardiomyopathy: Code(s): I42.9 - Cardiomyopathy, unspecified Status: Acute Assessment and Plan: Severe nonischemic cardiomyopathy. No signs of decompensated heart failure at this time. Medical therapy with spironolactone, coreg, Jardiance, and losartan. Would prefer for him to be on Entresto, however unfortunately he has experienced angioedema with lisinopril in the past so Entresto is not a safe option for him in my opinion. LifeVest has been ordered and hopefully will be placed today. No evidence of CAD on angiogram yesterday, will d/c ASA and atorvastatin (lipids normal) OK for discharge home today with close outpatient follow up DS: Summary Hospital Course Reason for hospitalization: Chest pain Hospital Course: Presented to the ED with complaint of chest pain and had a modest elevation in his troponin. He was taken to the cardiac labels molder where he was found to have angiographically normal coronary arteries. However, his LVSF was severely reduced with an EF of 15%. He did not have any periprocedural complications and remained stable with no evidence of CHF. His medical regimen was optimized and he was fitted for a LifeVest. Stable and appropriate for discharge home today. Time Spent with Patient Time attestation: Total time spent providing and/or coordinating discharge services: Exam Narrative: Up and about in his room in no distress Const: General: cooperative, healthy appearing, comfortable, well developed and alert; No acute distress or confusion Nutritional Appearance: well nourished Orientation/consciousness: oriented to person, patient oriented x3 and No confusion Other: Obese, pleasant and NAD HENMT: Head: normocephalic and atraumatic Ears: external ears normal General nose exam: Normal external nose present Mouth: Yes Normal oral and palatal mucosa present Eyes: General: appearance normal, both eyes and all related structures EOM: EOMs intact bilaterally Neck: Neck: no lymphadenopathy and No JVD Thyroid: thyroid normal Carotids: no bruits Chest: Chest palpation & inspection: no tenderness Resp: Effort & Inspection: normal respiratory effort and able to speak in complete sentences Auscultation: clear to auscultation bilaterally Cardio: Jugular venous distension: no JVD Rate: regular rate Rhythm: regular rhythm Bruits: no carotid bruits Peripheral pulses: Peripheral pulses 2+ throughout, posterior tibial pulses present and dorsalis pedis present GI: Inspection: normal to inspection and non-distended Other: No distension Skin: General skin exam: normal color and no rashes or lesions noted Rashes: rash noted Wounds: wound noted Other: R groin arterial access site free from bleeding, hematoma, or bruit. Neuro: General: oriented to person, patient oriented x3 and No confusion Speech: normal speech Extrem: General: no pedal edema Right lower extremity: no edema Left lower extremity: no edema Psych: Appearance: grossly normal Mental Status: mental status grossly normal Speech and movement: Normal speech and movement present Discharge Plan Discharge Consulting providers: Devante Goodman ; Harman Montaño ; Richi Ellis Discharging Clinician: Rachel Horvath Patient Disposition: Home, Self-Care Activity: other - see discharge instructions Diet: heart healthy Discharge Instructions: [facility] [address] [place] [address]
== END 2022-03-28 16:34 | disposition home or self-care (01) | DRG 287 ==
PROVIDERS: Specialist; Admitting Provider Internal Medicine Cardiovascular Disease; Visit Provider Nurse Practitioner
PROC: 4A023N7 Measurement of Cardiac Sampling and Pressure, Left Heart, Percutaneous Approach (ICD-10-PCS; CPT 93452; principal; 2022-03-27 11:30)
PROC: 4A023N7 Measurement of Cardiac Sampling and Pressure, Left Heart, Percutaneous Approach (ICD-10-PCS; 2022-03-27 11:30)
DX: I42.8 Other cardiomyopathies (principal); I11.9 Hypertensive heart disease without heart failure; I43 Cardiomyopathy in diseases classified elsewhere; E78.5 Hyperlipidemia, unspecified; K58.9 Irritable bowel syndrome, unspecified; G47.30 Sleep apnea, unspecified; E66.9 Obesity, unspecified; Z68.31 Body mass index [BMI] 31.0-31.9, adult; Z86.718 Personal history of other venous thrombosis and embolism; I25.2 Old myocardial infarction; Z98.84 Bariatric surgery status; Z87.891 Personal history of nicotine dependence
CPT/HCPCS: 36415; 71275; 80053; 80061; 83735; 84484; 85025; 85027; 85610; 85730; 93005; 93458; 96374; A9270; C1760; C1769; C1887; C1894; C8929; G0269; G0378; G0379; J1644; J2250; J3010; J7040; Q9957; Q9967

== ENCOUNTER 2022-04-20 07:15 | Outpatient (RCR) | payer OTHER, SELFPAY ==
[2022-04-18 09:07] VITALS: PULSE 61
== END 2022-04-27 16:26 | disposition home or self-care (01) ==
LOC: ANHCPREHAB 07:15
PROVIDERS: Visit Provider Nurse Practitioner
DX: I50.89 Other heart failure (principal)
CPT/HCPCS: 93798

== ENCOUNTER 2022-11-16 15:26 | Emergency (ER) | payer OTHER, SELFPAY ==
[2022-11-16 15:43] VITALS: BP 137/74; PULSE 61; RESP 16; TEMP 37.2; O2SAT 100
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
== END 2022-11-16 16:20 | disposition home or self-care (01) ==
PROVIDERS: Emergency Provider Nurse Practitioner Family
DX: R51.9 Headache, unspecified (principal); V47.6XXA Car passenger injured in collision with fixed or stationary object in traffic accident, initial encounter; Z87.891 Personal history of nicotine dependence; I10 Essential (primary) hypertension; E78.5 Hyperlipidemia, unspecified; I42.9 Cardiomyopathy, unspecified; I25.2 Old myocardial infarction; Z86.718 Personal history of other venous thrombosis and embolism; Z98.84 Bariatric surgery status
CPT/HCPCS: 99213; G0463

== ENCOUNTER 2023-02-10 09:43 | Emergency (ER) | payer OTHER, SELFPAY ==
[2023-02-10 09:57] VITALS: BP 112/50; PULSE 62; RESP 16; TEMP 36.6; O2SAT 99
--- NOTE | 2023-02-10 10:03 | ED.NAVMDI ---
HPI - Nausea/Vomiting/Diarrhea General Chief complaint: Nausea/Vomiting/Diarrhea Stated complaint: diarrhea Time Seen by Provider: 02/10/23 10:25 Source: patient and RN notes reviewed Mode of arrival: ambulatory Limitations: no limitations History of Present Illness HPI Narrative: 47-year-old male presents with concern for persistent diarrhea for 1 week. He reports proximally 28 diarrhea stools a day. Reports diarrhea is waking him up at night. He denies vomiting, nausea, decreased appetite. He denies abdominal pain. Denies fever, aches, chills, sweats. He has not traveled out of the country. He says no one else in his home has similar symptoms. He reports he tried Tums without relief. MD elicited complaint: diarrhea Related Data Home Medications Medication Instructions Recorded Confirmed carvedilol 25 mg tablet 25 mg PO BID 07/06/19 02/10/23 hydralazine 25 mg tablet 25 mg PO DAILY 11/16/22 02/10/23 meloxicam 15 mg tablet 15 mg PO DAILY 02/10/23 02/10/23 tizanidine 2 mg tablet See Rx Instructions .Route .COMPLEX 02/10/23 02/10/23 Allergies Allergy/AdvReac Type Severity Reaction Status Date / Time lisinopril AdvReac Intermediate Swelling Verified 02/10/23 10:04 Review of Systems Review of Systems: CONSTITUTIONAL: Denies malaise, chills, sweats, or fever. ENT: Denies rhinorrhea, congestion, sinus pain, otalgia or sore throat. CARDIOVASCULAR: Denies chest pain, palpitations, or edema. RESPIRATORY: Denies cough or dyspnea. GASTROINTESTINAL: Denies abdominal pain, nausea, vomiting, bloody, or mucous stools. Reports diarrhea GENITOURINARY: Denies dysuria or hematuria. MUSCULOSKELETAL: Denies myalgia. NEUROLOGIC: Denies headache. All systems reviewed & are unremarkable except as noted in HPI and below PMFSH Past Medical History Medical History (Updated 02/10/23 @ 10:31 by Adriana Lewis NP) Cardiomyopathy H/O deep venous thrombosis 2020? 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 H/O local excision of skin lesion History of back surgery History of cardiac catheterization Family History Family History (Updated 04/18/22 @ 08:36 by Renuka Oliveros RN) Father Diabetes mellitus Heart disease Heart problems when in his 20's, clogged arteries in middle age, possible valve dz Hypertension High cholesterol Mother Alive and well Other Blood clot in vein Social History Social History Smoking packs per day: 0.25 Smoking cigarettes per day: 5.0 Years smoked: 2 Smoking pack-years: 0.50 Smoking status: Former smoker Tobacco type: cigarettes Alcohol intake: current Drinks per week: 5 Alcohol use details: Occasional Substance use: never Gender identity (if verbalized by the patient): Male Spiritual care concerns: Yes Comments At time of signature, agree with nursing past medical, surgical, social and family history. There is no relevant family history pertinent to the presenting complaint Exam Narrative: GENERAL: Well-appearing, well-nourished, and in no acute distress. HEAD: Normocephalic, atraumatic. EYES: PERRLA, conjunctivae clear, and EOMI. ENT: Nares clear. Mucous membranes moist. NECK: Supple. No lymphadenopathy CHEST: Speaks in full sentences. No respiratory distress. HEART: Regular rate and rhythm. ABDOMEN: Soft, flat, nondistended, nontender. No guarding, rebound tenderness, or rigidity. No pulsatile masses. Bowel sounds present in all four quadrants. No organomegaly. No periumbilical tenderness. SKIN: Warm, dry, no rash. NEURO: Alert and oriented x3. PSYCH: Normal mood and affect Course Course Emergency Course: Patien
== END 2023-02-10 10:36 | disposition home or self-care (01) ==
PROVIDERS: Emergency Provider Nurse Practitioner
DX: R19.7 Diarrhea, unspecified (principal); Z87.891 Personal history of nicotine dependence; I10 Essential (primary) hypertension; E78.5 Hyperlipidemia, unspecified; I42.9 Cardiomyopathy, unspecified; I25.2 Old myocardial infarction; Z86.718 Personal history of other venous thrombosis and embolism; Z98.84 Bariatric surgery status
CPT/HCPCS: 99213; G0463

== ENCOUNTER 2025-05-08 01:50 | Emergency (ER) | payer OTHER, SELFPAY ==
--- NOTE | ~2025-05-08 | XR_ITS ---
Examination: XR chest 1V portable Clinical History: F/C Shortness of breath Comparison: 01/30/2022 Technique: Portable AP Findings: Left ICD. Mild cardiomegaly. Lungs clear. No acute bony abnormality. IMPRESSION: 1. No acute cardiopulmonary findings given portable technique. Reviewed, dictated and finalized at location [employer]
[2025-05-08 02:09] VITALS: BP 119/74; PULSE 79; RESP 18; TEMP 36.7; O2SAT 96
[2025-05-08 02:47] LABS: Influenza A QL RT-PCR Negative (Negative); Influenza B QL RT-PCR Negative (Negative); RSV RNA, RT-PCR Negative (Negative); SARS-CoV-2 RNA PCR Negative (Negative)
[2025-05-08 03:52] VITALS: BP 125/73; PULSE 61; RESP 19; O2SAT 96
[2025-05-08 04:58] VITALS: TEMP 37.1
[2025-05-08] MEDS: SODIUM CHLORIDE 0.9% IV 1,000 ML 999 ML IV CONT (05:08)
[2025-05-08] MEDS: ACETAMINOPHEN 500 MG TABLET 1000 MG PO (05:08)
[2025-05-08 05:18] LABS: Hematocrit 41.2 % (42.0-52.0); Hemoglobin 14.1 g/dL (14.0-18.0); Immature Granulocyte Percent A 0.5 % (0-0.5); Lymphocytes Absolute Auto 0.37 K/mm3 (0.9-3.2); Mean Corpuscular HGB Conc 34.2 g/dl (32-36); Mean Corpuscular Hemoglobin 25.5 pg (26-34); Mean Corpuscular Volume 74.4 fl (80-100); Nucleated Red Blood Cells Absolute Auto 0.000 K/mm3 (0.0-0.012); Nucleated Red Blood Cells Perc 0.0 % (0.0-0.2); Platelet Count Result 272 k/mm3 (150-375); Red Blood Count 5.54 M/mm3 (4.6-6.20); White Blood Count 9.7 K/mm3 (4.5-10.0)
[2025-05-08 05:20] LABS: Add Urine Microscopic? YES; Appearance Urine Clear (Clear); Glucose Urine UA 3+ mg/dL (Negative); Leukocyte Esterase Ur Negative LEU/UL (Negative); Nitrate Urine Negative (Negative); Non Pathogenic Casts 0-2; Specific Grav Ur > 1.045 (1.001-1.035)
[2025-05-08 05:38] LABS: Alanine Aminotransferase 18 U/L (6-50); Albumin Level 4.1 g/dL (3.5-5.1); Alkaline Phosphatase 96 U/L (38-126); Anion Gap 9 mmol/L (4-12); Aspartate Amino Transferase 28 U/L (17-59); Bilirubin,Total 1.2 mg/dL (0.2-1.3); Blood Urea Nitrogen 12 mg/dL (9-20); Calcium 8.3 mg/dL (8.4-10.2); Carbon Dioxide 27 mmol/L (22-30); Chloride 102 mmol/L (98-107); Estimated CRCL calculation 116 ml/min; Estimated Glomerular Filt Rate > 60; Glucose 108 mg/dL (65-110); Potassium 3.9 mmol/L (3.4-5.0); Sodium 138 mmol/L (137-145); Total Protein 7.6 g/dL (6.3-8.2)
[2025-05-08 05:42] LABS: NT Pro B Type Natriuretic Pept 127 pg/mL (19.9-100)
[2025-05-08 05:49] LABS: Hypochromasia 1+; Schistocytes None Seen; Target Cells 1+
--- NOTE | 2025-05-08 06:05 | ED.GENADULT ---
HPI - General Adult General Chief complaint: Upper Respiratory Infection Stated complaint: flu symptoms Time Seen by Provider: 05/08/25 03:34 History of Present Illness HPI narrative: This is a 50-year-old male presenting for flu-like symptoms. Patient says he has been having subjective fever and chills. Feels like his legs are heavy. He has not had any cough chest pain difficulty breathing abdominal pain nausea vomiting diarrhea. 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 He is concerned there infected. Related Data Home Medications ?Medication ?Instructions ?Recorded ?Confirmed ?Last Taken ?Type carvedilol 25 mg tablet 25 mg PO BID 07/06/19 02/10/23 Unknown History hydralazine 25 mg tablet 25 mg PO DAILY 11/16/22 02/10/23 Unknown History meloxicam 15 mg tablet 15 mg PO DAILY 02/10/23 02/10/23 Unknown History tizanidine 2 mg tablet See Rx Instructions .Route .COMPLEX 02/10/23 02/10/23 Unknown History Allergies Allergy/AdvReac Type Severity Reaction Status Date / Time lisinopril AdvReac Intermediate Swelling Verified 02/10/23 10:04 [facility] Past Medical History Medical History NSTEMI (non-ST elevated myocardial infarction) 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 H/O local excision of skin lesion History of back surgery History of cardiac catheterization Family History Family History Father Diabetes mellitus Heart disease Heart problems when in his 20's, clogged arteries in middle age, possible valve dz Hypertension High cholesterol Mother Alive and well Other Blood clot in vein Social History Social History Smoking packs per day: 0.25 Smoking cigarettes per day: 5.0 Years smoked: 2 Smoking pack-years: 0.50 Tobacco type: cigarettes Alcohol intake: current Drinks per week: 5 Alcohol use details: Occasional Substance use: never Gender identity (if verbalized by the patient): Male Spiritual care concerns: Yes Exam Narrative: APPEARANCE: No apparent distress. Head: atraumatic. EYES: EOMI, NOSE: Atraumatic NECK: Trachea midline RESPIRATORY: No increased rate of breathing CARDIOVASCULAR: RRR, ABDOMINAL: Non-distended MUSCULOSKELETAl: No obvious deformities NEURO: Alert. Moving 4/4 extremities SKIN:: Patient has a [place] brand on his left pectoral as well as 2 overlapping [place] brands on his left shoulder with granulation tissue. There is mild erythema and tenderness around the sites. PSYCHIATRIC: Normal affect Course Vital Signs Vital signs: Vital Signs Temperature 98.1 F 05/08/25 02:09 Pulse Rate 79 05/08/25 02:09 Respiratory Rate 18 05/08/25 02:09 Blood Pressure 119/74 05/08/25 02:09 Pulse Oximetry 96 05/08/25 02:09 Oxygen Delivery Room Air 05/08/25 02:09 Temperature 98.7 F 05/08/25 04:58 Pulse Rate 61 05/08/25 03:52 Respiratory Rate 19 05/08/25 03:52 Blood Pressure 125/73 05/08/25 03:52 Pulse Oximetry 96 05/08/25 03:52 Oxygen Delivery Room Air 05/08/25 02:09 Medical Decision Making [facility] Narrative Medical decision making narrative: -Course: 50-year-old male presenting with flu-like symptoms after branding himself with an [place] sign for his fr[employer]. There is some mild erythema around the omega signs which may represent an early cellulitis. Patient received a dose of IV Ancef. He will be discharged on Keflex. The rest of his laboratory studies chest x-ray and viral swabs were unremarkable. Given return precautions. -DDX includes but is not limited to: Cellulitis, viral syndrome, pneumonia Vital Signs Vital Signs: Vital Signs Temperature 98.1 F 05/08/25 02:09 Pulse Rate 79 05/08/25 02:09 Respiratory Rate 18 05/08/25 02:09 Blood Pressure 119/74 05/08/25 02:09 Pulse Oximetry 96 05/08/25 02:09 Oxygen Delivery Room Air 05/08/25 02:09 Temperature 98.7 F 05/08/25 04:58 Pulse Rate 61 05/08/25 03:52 Respiratory Rate 19 05/08/25 03:52 Blood Pressure 125/73 05/08/25 03:52 Pulse Oximetry 96 05/08/25 03:52 Oxygen Delivery Room Air 05/08/25 02:09 Lab Data 05/08/25 05:06 05/08/25 05:06 Labs: Lab Results 05/08/25 05/08/25 Range/Units 02:02 05:06 WBC 9.7 (4.5-10.0) K/mm3 RBC 5.54 (4.6-6.20) M/mm3 Hgb 14.1 (14.0-18.0) g/dL Hct 41.2 L (42.0-52.0) % MCV 74.4 L (80-100) fl MCH 25.5 L (26-34) pg MCHC 34.2 (32-36) g/dl RDW 15.3 H (11.5-14.5) % Plt Count 272 (150-375) k/mm3 MPV 9.6 (7.4-10.4) fl Immature Gran % (Auto) 0.5 (0-0.5) % Neut % (Auto) 88.6 H (45.5-73.1) % Lymph % (Auto) 3.8 L (18.3-44.2) % [place] % (Auto) 4.4 (2.6-8.5) % Eos % (Auto) 2.5 (0-4.4) % Baso % (Auto) 0.2 (0.2-1.2) % Lymph # (Auto) 0.37 L (0.9-3.2) K/mm3 [place] # (Auto) 0.4 (0.1-0.6) K/mm3 Eos # (Auto) 0.2 (0-0.3) K/mm3 Baso # (Auto) 0.0 (0.0-0.1) K/mm3 Abs Immat Gran (auto) 0.05 H (0.00-0.031) K/mm3 Absolute Neuts (auto) 8.6 H (1.3-6.7) K/mm3 Absolute Nucleated RBC 0.000 (0.0-0.012) K/mm3 Band Neutrophils % Not Reportable Nucleated RBC % 0.0 (0.0-0.2) % Platelet Estimate Adequate (Adequate) Hypochromasia 1+ Target Cells 1+ Schistocytes None seen Sodium 138 (137-145) mmol/L Potassium 3.9 (3.4-5.0) mmol/L Chloride 102 (98-107) mmol/L Carbon Dioxide 27 (22-30) mmol/L Anion Gap 9 (4-12) mmol/L BUN 12 (9-20) mg/dL Creatinine 0.94 (0.7-1.3) mg/dL Estim Creat Clear Calc 116 ml/min Estimated GFR > 60 (59 - ) Glucose 108 (65-110) mg/dL Calcium 8.3 L (8.4-10.2) mg/dL Total Bilirubin 1.2 (0.2-1.3) mg/dL AST 28 (17-59) U/L ALT 18 (6-50) U/L Alkaline Phosphatase 96 (38-126) U/L NT-Pro-B Natriuret Pep 127 H (19.9-100) pg/mL Total Protein 7.6 (6.3-8.2) g/dL Albumin 4.1 (3.5-5.1) g/dL Urine Color Yellow (Yellow) Urine Appearance Clear (Clear) Urine pH 5.5 (5.0-9.0) Ur Specific Douglas > 1.045 H (1.001-1.035) Urine Protein 1+ H (Negative) mg/dL Urine Glucose (UA) 3+ H (Negative) mg/dL Urine Ketones Trace H (Negative) mg/dL Ur Blood (Man) Negative (Negative) Urine Nitrate Negative (Negative) Urine Bilirubin Negative (Negative) Urine Urobilinogen 1.0 (<2.0) mg/dL Leukocyte Esterase Rfl Negative (Negative) JOEY/UL Urine RBC 0-2 (0-2) /hpf Urine WBC 0-5 (0-3) /hpf Ur Squamous Epith Cells None seen (Few) /hpf Urine Bacteria None seen /hpf Urine Casts 0-2 Influenza A (RT-PCR) Negative (Negative) Influenza B (RT-PCR) Negative (Negative) RSV (RT-PCR) Negative (Negative) SARS-CoV-2 RNA (RT-PCR) Negative (Negative) Discharge Plan Discharge Clinical Impression: Cellulitis Patient Disposition: Home Condition: Stable Instructions: Antibiotic Form, Cellulitis (ED) Additional Instructions: You were seen in the emergency department for flu-like symptoms. This may be due to the brands on your chest and arm. Please complete a course of Keflex for soft tissue infection. Please use Motrin and Tylenol for pain. Follow-up with your primary care physician next 2-4 days for a wound check. If you feel the wounds are becoming more infected, more painful more redness or swelling please return to ED for re-evaluation. Patient Language: Malagasy Prescriptions: No Action losartan 100 mg tablet 100 mg PO DAILY Qty: 30 0RF tizanidine 2 mg tablet See Rx Instructions .ROUTE .COMPLEX Rx Instructions: Rx meloxicam 15 mg tablet 15 mg PO DAILY azithromycin [Zithromax Z-Clyde] 250 mg tablet See Rx Instructions .ROUTE .COMPLEX Qty: 6 0RF Rx Instructions: take 500 mg today (day 1), then 250 mg for 4 days (days 2-5) loperamide [Anti-Diarrheal (loperamide)] 2 mg tablet 2 mg PO Q6H PRN (Reason: loose stool) Qty: 14 0RF Rx Instructions: Take 1 tablet after your 1st loose bowel movement, take a 2nd tablet after each loose bowel movement, do not take more than 4 tablets in 24 hours hydralazine 25 mg tablet 25 mg PO DAILY carvedilol 25 mg tablet 25 mg PO BID Jardiance 10 mg Tablet 10 mg PO DAILY 30 Days Qty: 30 1RF spironolactone 25 mg Tablet 25 mg PO QAM 30 Days Qty: 30 1RF Follow-up/Referrals: Beatrice,Tavares Matamoros MD [Primary Care Provider, Unknown] - 2 Days Referral Note: Wound check, self inflicted branding
[2025-05-08 06:24] VITALS: BP 117/61; PULSE 76; RESP 20; TEMP 36.8; O2SAT 100
== END 2025-05-08 06:26 | disposition home or self-care (01) ==
PROVIDERS: Emergency Provider Emergency Medicine; PCP Internal Medicine
DX: L03.313 Cellulitis of chest wall (principal); L03.114 Cellulitis of left upper limb; Z20.822 Contact with and (suspected) exposure to COVID-19; I25.2 Old myocardial infarction; I10 Essential (primary) hypertension; I42.9 Cardiomyopathy, unspecified; E78.5 Hyperlipidemia, unspecified; G47.30 Sleep apnea, unspecified; Z98.84 Bariatric surgery status; F17.210 Nicotine dependence, cigarettes, uncomplicated
CPT/HCPCS: 36415; 71045; 80053; 81001; 83880; 85025; 87637; 96361; 96374; 99284; A9270; J0690; J7030

== ENCOUNTER 2025-06-28 12:50 | Emergency (ER) | payer OTHER, SELFPAY ==
[2025-06-28 12:50] VITALS: BP 115/70; PULSE 78; RESP 16; TEMP 36.7; O2SAT 97
--- NOTE | 2025-06-28 13:08 | ED.URI ---
HPI - URI/Sore Throat General Chief Complaint: Upper Respiratory Infection Stated Complaint: flu symptoms Time Seen by Provider: 06/28/25 12:51 Source: patient Mode of arrival: ambulatory Limitations: no limitations History of Present Illness HPI Narrative: Patient is a 50-year-old male that presents with 2 days of sore throat, body aches, sweats, headache, congestion. Patient has taken NyQuil, Tylenol, tramadol, cough drops and throat spray. denies any fever, chills, nausea, vomiting, diarrhea. Related Data Home Medications ?Medication ?Instructions ?Recorded ?Confirmed ?Last Taken ?Type carvedilol 25 mg tablet 25 mg PO BID 07/06/19 06/28/25 Unknown History hydralazine 25 mg tablet 25 mg PO DAILY 11/16/22 06/28/25 Unknown History meloxicam 15 mg tablet 15 mg PO DAILY 02/10/23 02/10/23 Unknown History tizanidine 2 mg tablet See Rx Instructions .Route .COMPLEX 02/10/23 02/10/23 Unknown History Allergies Allergy/AdvReac Type Severity Reaction Status Date / Time lisinopril AdvReac Intermediate Swelling Verified 06/28/25 12:59 Review of Systems Review of Systems: All systems reviewed & are unremarkable except as noted in HPI and below Constitutional: Constitutional: Denies chills, Denies fatigue, Denies fever(s), Reports headache(s), Denies malaise and Denies weakness Eyes: Eyes: Denies blurry vision, Denies itchy eyes and Denies loss of vision ENT: Denies otalgia, Reports headache(s), Reports nasal congestion, Denies sinus pain and Reports sore throat Cardiovascular: Cardiovascular: Denies chest pain, Denies irregular heart rhythm and Denies dyspnea Respiratory: Respiratory: Denies cough and Denies dyspnea Gastrointestinal: Gastrointestinal: Denies abdominal pain, Denies diarrhea, Denies nausea and Denies vomiting Musculoskeletal: Musculoskeletal: Denies back pain, Reports myalgias and Denies arthralgias Integumentary/Breasts: Skin/Breast: Denies pruritus and Denies rash Neurologic: Reports headache(s), Denies loss of vision and Denies weakness Psychiatric: Psychiatric: Reports no additional psychiatric complaints Endocrine: Endocrine: Denies fatigue Allergic/Immunologic: Allergic/Immunologic: Denies itchy eyes PMFSH Past Medical History Medical History NSTEMI (non-ST elevated myocardial infarction) 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 H/O local excision of skin lesion History of back surgery History of cardiac catheterization Family History Family History Father Diabetes mellitus Heart disease Heart problems when in his 20's, clogged arteries in middle age, possible valve dz Hypertension High cholesterol Mother Alive and well Other Blood clot in vein Social History Social History Smoking packs per day: 0.25 Smoking cigarettes per day: 5.0 Years smoked: 2 Smoking pack-years: 0.50 Smoking status: Former smoker Tobacco type: cigarettes Alcohol intake: current Drinks per week: 5 Alcohol use details: Occasional Substance use: never Gender identity (if verbalized by the patient): Male Spiritual care concerns: Yes Comments At time of signature, agree with nursing past medical, surgical, social and family history. There is no relevant family history pertinent to the presenting complaint. Exam Const: General: cooperative, healthy appearing, comfortable, no acute distress and well nourished Nutritional Appearance: well nourished Orientation/consciousness: patient oriented x3 Limitations: no limitations HENMT: Head: normal to inspection, normocephalic and atraumatic Ears: hearing grossly normal bilaterally, external ears normal, TM's normal bilaterally, EAC's normal and no periauricular adenopathy Face/Nose/Sinus: Normal external nose present, Abnormal mucous membranes and turbinates present erythematous bilateral and diffuse, normal facial exam, sinuses nontender and face symmetric Face and sinus: normal facial exam, sinuses nontender and face symmetric Mouth: Yes Normal oral and palatal mucosa present, Yes lip normal, Yes tongue normal, Yes Normal salivary glands and ducts present, Yes oropharynx normal and Yes moist mucous membranes Teeth and gingiva: dentition normal Throat: posterior oropharynx normal, tonsils normal and uvula midline Eyes: General: appearance normal, both eyes and all related structures Alignment and Position: alignment normal and position normal Periorbital: periorbital findings normal Eyelids: eyelids normal Pupils: Equal, round and reactive pupils present Neck: Neck: normal visual inspection, full ROM, no lymphadenopathy and supple Chest: Chest palpation & inspection: normal inspection of the chest and normal palpation of entire chest wall Resp: Effort & Inspection: normal respiratory effort and able to speak in complete sentences Auscultation: clear to auscultation bilaterally, no crackles, no rales, no rhonchi and no wheezes Cardio: Rate: regular rate Rhythm: regular rhythm Heart sounds: S1 normal heart sound present and S2 normal heart sound present GI: Inspection: normal to inspection Skin: General skin exam: normal color and no rashes or lesions noted Neuro: General: patient oriented x3 and moves all extremities Cranial nerves: Yes Equal, round and reactive pupils present Speech: normal speech Gait exam (Neuro): Normal gait present Extrem: General: normal to inspection, full ROM and no edema Psych: Appearance: grossly normal and well kempt Mental Status: mental status grossly normal Speech and movement: Normal speech and movement present Affect: normal affect Attitude: cooperative Thought process: Normal thought process present Course Course Emergency Course: Patient is aware of diagnosis, understands and agrees to treatment plan. Anticipatory guidance given. Patient agrees to follow-up as directed and is aware of reasons to seek care at the emergency department. Portions of this record may have been created with voice recognition software Level of Care: Express Care Visit Vital Signs Vital signs: Vital Signs Temperature 36.7 C 06/28/25 12:50 Pulse Rate 78 06/28/25 12:50 Respiratory Rate 16 06/28/25 12:50 Blood Pressure 115/70 06/28/25 12:50 Pulse Oximetry 97 06/28/25 12:50 Oxygen Delivery Room Air 06/28/25 12:50 Temperature 36.7 C 06/28/25 12:50 Pulse Rate 78 06/28/25 12:50 Respiratory Rate 16 06/28/25 12:50 Blood Pressure 115/70 06/28/25 12:50 Pulse Oximetry 97 06/28/25 12:50 Oxygen Delivery Room Air 06/28/25 12:50 [facility] MDM Narrative Medical decision making narrative: Rapid COVID, flu, strep were negative. A throat culture is pending. Symptoms likely viral in etiology. Concerning behavior for drug-seeking, asks if there was stronger pain medicine that could be prescribed Pt well hydrated appearing, in no respiratory distress, hemodynamically stable. Recommend supportive care. The patient is stable at time of discharge the clinical impression was discussed and the patient was given the opportunity to ask questions, which were addressed as completely as possible given the information available at present. Anticipatory guidance and return to care precautions were discussed and the importance of primary care follow-up was stressed and encouraged. The patient voiced understanding of the plan, indications to return, and the need for follow-up. Exam findings show no acute concerns or changes Patient is appropriate for outpatient treatment and follow-up. Differential Diagnosis Differential Diagnosis: Differential diagnosis considered: Hwang virus, strep pharyngitis, allergic rhinitis, upper respiratory tract infection, sinusitis, rhinosinusitis, nasopharyngitis. viral pharyngitis, otitis media, otitis externa, otitis effusion, foreign body, cerumen impaction, viral syndrome, and influenza. Medical Records I have reviewed the following patient records and this information was taken into consideration when formulating the assessment and plan.: previous clinic visits Lab Data MDM Lab Attestation statement: I personally reviewed the patient's lab results. Labs: Lab Results 06/28/25 Range/Units 12:56 POC Influenza A Ag Negative (Negative) POC Influenza B Ag Negative (Negative) POC SARS CoV-2 Ag Negative (Negative) POC Grp A Strep Screen Negative (Negative) Discharge Plan Discharge Clinical Impression: Upper respiratory infection Qualifiers: URI type: unspecified viral URI Qualified Code(s): J06.9 - Acute upper respiratory infection, unspecified Patient Disposition: Home Condition: Stable Instructions: Upper Respiratory Infection (ED) Additional Instructions: Your rapid strep swab was negative today at [facility]. A throat culture will be sent to the laboratory for further testing. If the test is positive, you will receive a phone call within 48 hours and an appropriate antibiotic will be initiated at that time. Your Covid and flu are both negative Your symptoms are likely due to a viral illness, which is not treated with antibiotics. Viral symptoms can be present for up to a few weeks. -For pain/fever, you may take: Tylenol 650-1000mg by mouth every 4-6 hours. Do not exceed 4000mg in 24 hours. Advil (Ibuprofen) 600 mg by mouth every 6 hours. Do not exceed 2400mg in 24 hours. 8 AM: Tylenol 11 AM: Ibuprofen 2 PM: Tylenol 5 PM: Ibuprofen 8 PM: Tylenol 11 PM: Ibuprofen 2 AM: Tylenol 5 AM: Ibuprofen -Antihistamine medication such as Benadryl/Zyrtec at night and Claritin/Dominique during the day can help improve symptoms. -Use Flonase twice a day for 5 days then daily to help reduce the inflammation and dry up your sinuses. -You can also use Sudafed behind the pharmacy counter(12 or 24 hour). Be sure to drink plenty of water with these medications at least 8 ounces with every dose and it is important to drink 8 to 10 glasses of water per day. Water is a natural decongestant -Eat and drink things that are easy to swallow, like tea or soup, or popsicles. -Oral rinses such as: Salt water gargles and/or may use topical anesthetic (eg. Chloraseptic spray) or lozenges to relieve dryness or throat pain). -Frequent hand washing or hand change attendant is one of the best ways to prevent spread of infection. -Using a vaporizer or humidifier at night will also help thin secretions and help with coughing up phlegm. Call your Primary Care Doctor and make a follow-up appointment in 3 days. If your cough worsens, you develop a fever greater than 103, you develop shaking chills, a fast heartbeat, trouble breathing and/or feel you are are breathing much faster than usual, call your Primary Care Doctor or go to the ER. Patient Language: Indonesian Prescriptions: No Action losartan 100 mg tablet 100 mg PO DAILY Qty: 30 0RF tizanidine 2 mg tablet See Rx Instructions .ROUTE .COMPLEX Rx Instructions: Rx meloxicam 15 mg tablet 15 mg PO DAILY hydralazine 25 mg tablet 25 mg PO DAILY carvedilol 25 mg tablet 25 mg PO BID Jardiance 10 mg Tablet 10 mg PO DAILY 30 Days Qty: 30 1RF spironolactone 25 mg Tablet 25 mg PO QAM 30 Days Qty: 30 1RF Follow-up/Referrals: Beatrice,Tavares Matamoros MD [Primary Care Provider, Unknown] - 3 Days Stand Alone Forms: Work/School Release IP Time of Disposition: 14:04
[2025-06-28 13:28] LABS: EDCOVIDSCREEN Negative (Negative); EDINFLUASCREEN Negative (Negative); EDINFLUBSCREEN Negative (Negative)
[2025-06-28 14:14] LABS: EDSTREPNEGPOS1 Negative (Negative)
== END 2025-06-28 14:15 | disposition home or self-care (01) ==
PROVIDERS: Emergency Provider Nurse Practitioner Family; PCP Internal Medicine
DX: J06.9 Acute upper respiratory infection, unspecified (principal); Z20.822 Contact with and (suspected) exposure to COVID-19; Z87.891 Personal history of nicotine dependence; I10 Essential (primary) hypertension; E78.5 Hyperlipidemia, unspecified; I42.9 Cardiomyopathy, unspecified; I25.2 Old myocardial infarction; Z86.718 Personal history of other venous thrombosis and embolism; Z98.84 Bariatric surgery status
CPT/HCPCS: 87081; 87426; 87804; 87880; 99212; 99213; G0463